=== PATIENT | female | born 1990 | race Caucasian/White ===

== ENCOUNTER 2019-10-28 04:14 | Emergency (ER) | payer OTHER ==
[~2019-10-28] VITALS: Ht 157.5 cm; Wt 78.5 kg
[2019-10-28 04:23] VITALS: Ht 157.5 cm; Wt 78.5 kg
[2019-10-28 05:06] LABS: BASOPHIL % 0.2 % (0-2); PLATELET COUNT 236 x10^3mcL (130-400); RED CELL DISTRIBUTION WIDTH 14.3 % (11.5-14.5)
[2019-10-28 05:09] LABS: UA SPECIFIC GRAVITY 1.025 (1.005-1.035); microscopic required? YES; urine erythrocyte NEGATIVE (NEGATIVE)
[2019-10-28 05:14] LABS: CARBON DIOXIDE 20.7 mmol/L (21-32); CHLORIDE SERUM 95 mmol/L (98-107); CREATININE SERUM 0.9 mg/dL (0.6-1.0); GFR1 > 60 mL/min; GLUCOSE SERUM 105 mg/dL (74-106); POTASSIUM SERUM 3.9 mmol/L (3.5-5.1); SODIUM SERUM 132 mmol/L (136-145)
[2019-10-28 05:19] LABS: ALKALINE PHOSPHATASE 73 U/L (46-116); ALT/SGPT 126 U/L (14-59); AST/SGOT 106 U/L (15-37); BILIRUBIN TOTAL 2.16 mg/dL (0.20-1.00)
[2019-10-28 05:20] LABS: TOTAL PROTEIN, SERUM 9.8 g/dL (6.4-8.2)
[2019-10-28 05:25] LABS: AMPHETAMINE QUAL UR NONE DETECTED (See below)
[2019-10-28 06:15] VITALS: BP 126/89
== END 2019-10-28 06:15 | disposition home or self-care (01) ==
LOC: ED 04:14
PROVIDERS: Specialist
DX: F19.939 Other psychoactive substance use, unspecified with withdrawal, unspecified (principal); T78.3XXA Angioneurotic edema, initial encounter; F14.10 Cocaine abuse, uncomplicated; I10 Essential (primary) hypertension; E86.0 Dehydration
CPT/HCPCS: G0480; J1200; J2060; J7030